=== PATIENT | male | born 1995 ===

== ENCOUNTER 2021-10-26 18:57 | Emergency (ER) | payer SELFPAY ==
[2021-10-26 19:01] VITALS: BP 109/61
[2021-10-26 21:47] LABS: Basophils % (Auto) 0.2 % (0.0-1.8); Hematocrit 53.5 % (35.5-45.6); Hemoglobin 17.5 gm/dl (11.8-15.2); Lymphocytes # (Auto) 1.2 K/mm3 (1.2-5.4); Mean Corpuscular HGB Conc 33 % (32-34); Mean Corpuscular Volume 93 fl (84-94); Monocytes # (Auto) 1.4 K/mm3 (0.0-0.8); Monocytes % (Auto) 7.2 % (0.0-7.3); Platelet Count 308 K/mm3 (140-440); Red Blood Count 5.76 M/mm3 (3.65-5.03); Red Cell Distribution Width 14.6 % (13.2-15.2)
[2021-10-26 22:03] LABS: Albumin 4.6 g/dL (3.9-5)
== END 2021-10-27 00:35 | disposition left against medical advice (07) ==
LOC: ED 18:57
DX: R11.2 Nausea with vomiting, unspecified (principal); Z53.21 Procedure and treatment not carried out due to patient leaving prior to being seen by health care provider
CPT/HCPCS: 36415; 80053; 85025